=== PATIENT | female | born 1960 | race Caucasian/White ===

== ENCOUNTER 2017-02-04 22:36 | Emergency (ER) | payer MEDICAID ==
[~2017-02-04] VITALS: Ht 154.9 cm; Wt 55.0 kg
[~2017-02-04 22:36] MED LIST: ALD50; FOLI-43 PO; FURO-152; FURO20TA4 PO; LACT10SO PO; LACTULOSE; MULT-904 PO; MVI; OMEP20CA10 PO; OMEPRAZOLE; PROP10TA10 PO; PROPRANOLOL; SPIR50TA26 PO; THIA100T72 PO; THIAMINE; TRAM50TA3 PO; TRAMADOL
[2017-02-05 02:50] VITALS: BP 135/63
== END 2017-02-05 03:26 | disposition left against medical advice (07) ==
LOC: ER 22:36
DX: M54.2 Cervicalgia (principal); Z53.21 Procedure and treatment not carried out due to patient leaving prior to being seen by health care provider